=== PATIENT | male | born 1940 | race Caucasian/White ===

== ENCOUNTER 2016-05-06 18:38 | Emergency (ER) | payer MEDICARE, BC ==
[~2016-05-06 18:38] MED LIST: ALBUTEROL S3 ML/VIAL NEB; ALDACTONE25 MG PO; ASPIRIN325 MG PO; CEFDINIR300 MG PO; CEFUROXIME250 MG PO; COZAAR50 MG PO; FLOMAX0.4 MG PO; FLUTICASONE PRO16 GM NS; GLUCOPHAGE1000 MG PO; HUMALOG100 UNIT/1 SQ; IPRAT-ALBUT 0.5-3 ML IH; ISOSORBIDE MONO30 MG PO; LANTUS100 UNIT/1 SQ; LASIX40 MG PO; LIPITOR80 MG PO; MAGNESIUM OXID400 MG PO; NEURONTIN400 MG PO; NEURONTIN600 MG PO; NYSTATIN1 EAC1 TOP; NYSTATIN5 ML PO; OMEPRAZOLE40 MG PO; PERFOROMIS20 MCG/2 M IH; POTASSIUM CHLO10 MEQ PO; POTASSIUM CHLO20 MEQ PO; PREDNISONE10 MG PO; PROBIOTIC1 EAC1 PO; PROSCAR5 MG PO; PULMICORT0.5 MG/2 M IH; SEROQUEL25 MG PO; TESSALON PERLE100 MG PO; TRAMADOL HCL50 MG PO; TYLENOL325 MG PO; ZANTAC150 MG PO; ZITHROMAX250 MG PO
[2016-08-16] MEDS ORDERED: ASPIR 8181 MG PO (11:50)
[2016-08-16] MEDS ORDERED: LIPITOR80 MG PO (11:51)
[2016-08-16] MEDS ORDERED: SENNA CONCENTR8.6 MG PO (11:51)
[2016-08-16] MEDS ORDERED: RISPERDAL1 MG PO (11:51)
[2016-08-16] MEDS ORDERED: DULCOLAX10 MG RC (11:52)
[2016-08-16] MEDS ORDERED: OMEPRAZOLE40 MG PO (12:01)
[2016-08-16] MEDS ORDERED: LASIX40 MG PO (12:01)
[2016-08-16] MEDS ORDERED: K-DUR20 MEQ PO (12:01)
[2016-08-16] MEDS ORDERED: COREG3.125 MG PO (12:02)
[2016-08-16] MEDS ORDERED: MAGNESIUM OXID400 MG PO (12:02)
[2016-08-16] MEDS ORDERED: FLOMAX0.4 MG PO (12:03)
[2016-08-16] MEDS ORDERED: PROSCAR5 MG PO (12:04)
[2016-08-16] MEDS ORDERED: ARICEPT10 MG PO (12:05)
[2016-08-16] MEDS ORDERED: REGLAN5 MG PO (12:05)
[2016-08-16] MEDS ORDERED: TYLENOL EXTRA500 MG PO (12:06)
[2016-08-16] MEDS ORDERED: COLACE100 MG PO (12:06)
[2016-08-16] MEDS ORDERED: BROVANA15 MCG/2 M NEB (12:07)
[2016-08-16] MEDS ORDERED: IPRAT-ALBUT 0.5-3 ML NEB (12:07)
[2016-08-16] MEDS ORDERED: PULMICORT0.5 MG/2 M NEB (12:07)
[2016-08-16] MEDS ORDERED: ZYVOX600 MG PO (12:08)
[2016-08-16] MEDS ORDERED: LEVEMIR100 UNIT/1 SQ (12:08)
== END 2016-05-06 19:36 | disposition home or self-care (01) ==
LOC: ER 18:38
DX: K80.20 Calculus of gallbladder without cholecystitis without obstruction (principal); E10.9 Type 1 diabetes mellitus without complications; I11.0 Hypertensive heart disease with heart failure; I50.9 Heart failure, unspecified; Z87.891 Personal history of nicotine dependence; Z96.643 Presence of artificial hip joint, bilateral; Z86.73 Personal history of transient ischemic attack (TIA), and cerebral infarction without residual deficits; Z79.82 Long term (current) use of aspirin; Z79.899 Other long term (current) drug therapy
CPT/HCPCS: 36415; 96361; 96374

== ENCOUNTER 2016-06-23 18:15 | Observation (INO) | payer MEDICARE, BC ==
[~2016-06-23] VITALS: Ht 182.9 cm; Wt 131.1 kg
--- NOTE | 2016-06-24 13:07 | NUR ---
PATIENT REFUSING TO WEAR O2, REFUSING BREATHING TREATMENTS. REPORTED TO MD CID AT THIS TIME. HE REPORTED TO CONTACT THE FAMILY AND HAVE SOMEONE TO COME SIT WITH THE PATIENT AT THIS TIME. MARTHA JOSHI SON REPORTED THAT NO FAMILY COULD COME SIT WITH PATIENT AT THIS TIME. DIGNA STEPHEN DID NOT ANSWER HIS PHONE AND UNABLE TO LEAVE VOICEMAIL AT THIS TIME. MD CID MADE AWARE AT THIS TIME AND VERBALIZED "CAN'T HELP YOU THEN DO WHATEVER THE PATIENT WILL LET YOU DO".
--- NOTE | 2016-06-24 14:27 | NUR ---
1000 B NAHID RN ATTEMPTED 3 STICKS FOR IV ALL UNSUCCESSFUL 1110 VANDANA RN FROM ICU ATTEMPTED 1 STICK AT IV ATTEMPT AND WAS UNSUCCESSFUL 1115 2 UNSUCCESSFUL IV ATTEMPTS BY MITCHEL GOLDSTEIN FROM ICU [address] CID AND RECEIVED ORDER FOR PICC LINE PLACEMENT
--- NOTE | 2016-06-24 16:01 | NUR ---
1320 PATIENT AGREEABLE TO WEAR O2 AT THIS TIME. 1400 BENNY MARIN HERE AT THIS TIME TO SIT WITH PATIENT. PATIENT RESTING IN BED WITH EYES CLOSED AT THIS TIME
--- NOTE | 2016-06-24 18:14 | NUR ---
172 MOY CALLED AND REPORTED PICC OK TO USE
[2016-08-16] MEDS ORDERED: ASPIR 8181 MG PO (11:50)
[2016-08-16] MEDS ORDERED: LIPITOR80 MG PO (11:51)
[2016-08-16] MEDS ORDERED: SENNA CONCENTR8.6 MG PO (11:51)
[2016-08-16] MEDS ORDERED: RISPERDAL1 MG PO (11:51)
[2016-08-16] MEDS ORDERED: DULCOLAX10 MG RC (11:52)
[2016-08-16] MEDS ORDERED: K-DUR20 MEQ PO (12:01)
[2016-08-16] MEDS ORDERED: OMEPRAZOLE40 MG PO (12:01)
[2016-08-16] MEDS ORDERED: LASIX40 MG PO (12:01)
[2016-08-16] MEDS ORDERED: MAGNESIUM OXID400 MG PO (12:02)
[2016-08-16] MEDS ORDERED: COREG3.125 MG PO (12:02)
[2016-08-16] MEDS ORDERED: FLOMAX0.4 MG PO (12:03)
[2016-08-16] MEDS ORDERED: PROSCAR5 MG PO (12:04)
[2016-08-16] MEDS ORDERED: REGLAN5 MG PO (12:05)
[2016-08-16] MEDS ORDERED: ARICEPT10 MG PO (12:05)
[2016-08-16] MEDS ORDERED: TYLENOL EXTRA500 MG PO (12:06)
[2016-08-16] MEDS ORDERED: COLACE100 MG PO (12:06)
[2016-08-16] MEDS ORDERED: PULMICORT0.5 MG/2 M NEB (12:07)
[2016-08-16] MEDS ORDERED: BROVANA15 MCG/2 M NEB (12:07)
[2016-08-16] MEDS ORDERED: IPRAT-ALBUT 0.5-3 ML NEB (12:07)
[2016-08-16] MEDS ORDERED: LEVEMIR100 UNIT/1 SQ (12:08)
[2016-08-16] MEDS ORDERED: ZYVOX600 MG PO (12:08)
== END 2016-06-25 18:10 | disposition home or self-care (01) ==
LOC: ER 18:15 → MED 21:47
PROVIDERS: ADMIT Internal Medicine
DX: G93.40 Encephalopathy, unspecified (principal); N39.0 Urinary tract infection, site not specified; I10 Essential (primary) hypertension; E78.5 Hyperlipidemia, unspecified; E11.9 Type 2 diabetes mellitus without complications; N40.0 Benign prostatic hyperplasia without lower urinary tract symptoms; J44.9 Chronic obstructive pulmonary disease, unspecified; I25.10 Atherosclerotic heart disease of native coronary artery without angina pectoris; I73.9 Peripheral vascular disease, unspecified; G47.30 Sleep apnea, unspecified; Z86.59 Personal history of other mental and behavioral disorders; Z79.899 Other long term (current) drug therapy; Z86.73 Personal history of transient ischemic attack (TIA), and cerebral infarction without residual deficits; Z98.61 Coronary angioplasty status; Z96.641 Presence of right artificial hip joint; Z98.49 Cataract extraction status, unspecified eye; Z87.891 Personal history of nicotine dependence; Z86.79 Personal history of other diseases of the circulatory system
CPT/HCPCS: 36415; 96360; 96361; 96372; 96375; 96376; 97162-GP; 97166; C1751; G0378; J0456; J0696; J1650

== ENCOUNTER 2016-06-23 18:15 | Emergency (ER) | payer MEDICARE, BC ==
[2016-08-16] MEDS ORDERED: ASPIR 8181 MG PO (11:50)
[2016-08-16] MEDS ORDERED: SENNA CONCENTR8.6 MG PO (11:51)
[2016-08-16] MEDS ORDERED: LIPITOR80 MG PO (11:51)
[2016-08-16] MEDS ORDERED: RISPERDAL1 MG PO (11:51)
[2016-08-16] MEDS ORDERED: DULCOLAX10 MG RC (11:52)
[2016-08-16] MEDS ORDERED: LASIX40 MG PO (12:01)
[2016-08-16] MEDS ORDERED: K-DUR20 MEQ PO (12:01)
[2016-08-16] MEDS ORDERED: OMEPRAZOLE40 MG PO (12:01)
[2016-08-16] MEDS ORDERED: COREG3.125 MG PO (12:02)
[2016-08-16] MEDS ORDERED: MAGNESIUM OXID400 MG PO (12:02)
[2016-08-16] MEDS ORDERED: FLOMAX0.4 MG PO (12:03)
[2016-08-16] MEDS ORDERED: PROSCAR5 MG PO (12:04)
[2016-08-16] MEDS ORDERED: ARICEPT10 MG PO (12:05)
[2016-08-16] MEDS ORDERED: REGLAN5 MG PO (12:05)
[2016-08-16] MEDS ORDERED: TYLENOL EXTRA500 MG PO (12:06)
[2016-08-16] MEDS ORDERED: COLACE100 MG PO (12:06)
[2016-08-16] MEDS ORDERED: IPRAT-ALBUT 0.5-3 ML NEB (12:07)
[2016-08-16] MEDS ORDERED: BROVANA15 MCG/2 M NEB (12:07)
[2016-08-16] MEDS ORDERED: PULMICORT0.5 MG/2 M NEB (12:07)
[2016-08-16] MEDS ORDERED: LEVEMIR100 UNIT/1 SQ (12:08)
[2016-08-16] MEDS ORDERED: ZYVOX600 MG PO (12:08)
== END 2016-06-23 21:46 | disposition admitted as inpatient to this hospital (09) ==
LOC: ER 18:15
DX: R41.82 Altered mental status, unspecified (principal); J18.9 Pneumonia, unspecified organism; K21.9 Gastro-esophageal reflux disease without esophagitis; E11.9 Type 2 diabetes mellitus without complications; I11.0 Hypertensive heart disease with heart failure; I50.9 Heart failure, unspecified; E78.00 Pure hypercholesterolemia, unspecified; J44.9 Chronic obstructive pulmonary disease, unspecified; E66.9 Obesity, unspecified; Z96.643 Presence of artificial hip joint, bilateral; Z79.82 Long term (current) use of aspirin; Z90.49 Acquired absence of other specified parts of digestive tract; Z79.899 Other long term (current) drug therapy; Z79.4 Long term (current) use of insulin; Z86.73 Personal history of transient ischemic attack (TIA), and cerebral infarction without residual deficits
CPT/HCPCS: 96360; 96361

== ENCOUNTER 2016-07-13 12:32 | Emergency (ER) | payer MEDICARE, BC ==
[2016-08-16] MEDS ORDERED: ASPIR 8181 MG PO (11:50)
[2016-08-16] MEDS ORDERED: LIPITOR80 MG PO (11:51)
[2016-08-16] MEDS ORDERED: SENNA CONCENTR8.6 MG PO (11:51)
[2016-08-16] MEDS ORDERED: RISPERDAL1 MG PO (11:51)
[2016-08-16] MEDS ORDERED: DULCOLAX10 MG RC (11:52)
[2016-08-16] MEDS ORDERED: K-DUR20 MEQ PO (12:01)
[2016-08-16] MEDS ORDERED: OMEPRAZOLE40 MG PO (12:01)
[2016-08-16] MEDS ORDERED: LASIX40 MG PO (12:01)
[2016-08-16] MEDS ORDERED: COREG3.125 MG PO (12:02)
[2016-08-16] MEDS ORDERED: MAGNESIUM OXID400 MG PO (12:02)
[2016-08-16] MEDS ORDERED: FLOMAX0.4 MG PO (12:03)
[2016-08-16] MEDS ORDERED: PROSCAR5 MG PO (12:04)
[2016-08-16] MEDS ORDERED: REGLAN5 MG PO (12:05)
[2016-08-16] MEDS ORDERED: ARICEPT10 MG PO (12:05)
[2016-08-16] MEDS ORDERED: TYLENOL EXTRA500 MG PO (12:06)
[2016-08-16] MEDS ORDERED: COLACE100 MG PO (12:06)
[2016-08-16] MEDS ORDERED: PULMICORT0.5 MG/2 M NEB (12:07)
[2016-08-16] MEDS ORDERED: IPRAT-ALBUT 0.5-3 ML NEB (12:07)
[2016-08-16] MEDS ORDERED: BROVANA15 MCG/2 M NEB (12:07)
[2016-08-16] MEDS ORDERED: ZYVOX600 MG PO (12:08)
[2016-08-16] MEDS ORDERED: LEVEMIR100 UNIT/1 SQ (12:08)
== END 2016-07-13 17:29 | disposition critical access hospital (66) ==
LOC: ER 12:32
DX: J18.9 Pneumonia, unspecified organism (principal); E10.9 Type 1 diabetes mellitus without complications; I11.0 Hypertensive heart disease with heart failure; I50.9 Heart failure, unspecified; E78.5 Hyperlipidemia, unspecified; I25.10 Atherosclerotic heart disease of native coronary artery without angina pectoris; I25.2 Old myocardial infarction; J44.9 Chronic obstructive pulmonary disease, unspecified; Z90.49 Acquired absence of other specified parts of digestive tract; Z87.891 Personal history of nicotine dependence; Z99.81 Dependence on supplemental oxygen; Z86.73 Personal history of transient ischemic attack (TIA), and cerebral infarction without residual deficits; Z96.643 Presence of artificial hip joint, bilateral; Z79.82 Long term (current) use of aspirin; Z79.899 Other long term (current) drug therapy
CPT/HCPCS: 36415; 51702; 96365; 96366; 96367; J3370

== ENCOUNTER 2016-07-13 12:32 | Inpatient (IN) | payer MEDICARE, BC ==
[~2016-07-13] VITALS: Ht 182.9 cm; Wt 129.3 kg
--- NOTE | 2016-07-17 07:46 | NUR ---
AT APPROXIMATELY 06:57 ANGELI AND BONNIE ADVISED ME OF PATIENTS FACE BEING MORE RED THAN USUAL AND HAVING A RASH. I HAVE WRITTEN FOR THE PHYSICIAN TO TAKE A LOOK AT HIS FACE ON THE PHYSICIAN COMMUNICATION SHEET.
[2016-08-16] MEDS ORDERED: ASPIR 8181 MG PO (11:50)
[2016-08-16] MEDS ORDERED: LIPITOR80 MG PO (11:51)
[2016-08-16] MEDS ORDERED: SENNA CONCENTR8.6 MG PO (11:51)
[2016-08-16] MEDS ORDERED: RISPERDAL1 MG PO (11:51)
[2016-08-16] MEDS ORDERED: DULCOLAX10 MG RC (11:52)
[2016-08-16] MEDS ORDERED: OMEPRAZOLE40 MG PO (12:01)
[2016-08-16] MEDS ORDERED: LASIX40 MG PO (12:01)
[2016-08-16] MEDS ORDERED: K-DUR20 MEQ PO (12:01)
[2016-08-16] MEDS ORDERED: MAGNESIUM OXID400 MG PO (12:02)
[2016-08-16] MEDS ORDERED: COREG3.125 MG PO (12:02)
[2016-08-16] MEDS ORDERED: FLOMAX0.4 MG PO (12:03)
[2016-08-16] MEDS ORDERED: PROSCAR5 MG PO (12:04)
[2016-08-16] MEDS ORDERED: ARICEPT10 MG PO (12:05)
[2016-08-16] MEDS ORDERED: REGLAN5 MG PO (12:05)
[2016-08-16] MEDS ORDERED: COLACE100 MG PO (12:06)
[2016-08-16] MEDS ORDERED: TYLENOL EXTRA500 MG PO (12:06)
[2016-08-16] MEDS ORDERED: PULMICORT0.5 MG/2 M NEB (12:07)
[2016-08-16] MEDS ORDERED: IPRAT-ALBUT 0.5-3 ML NEB (12:07)
[2016-08-16] MEDS ORDERED: BROVANA15 MCG/2 M NEB (12:07)
[2016-08-16] MEDS ORDERED: LEVEMIR100 UNIT/1 SQ (12:08)
[2016-08-16] MEDS ORDERED: ZYVOX600 MG PO (12:08)
== END 2016-07-19 13:05 | DRG 193 ==
LOC: ER 12:32 → MED 16:11
PROVIDERS: ADMIT Internal Medicine
DX: J18.9 Pneumonia, unspecified organism (principal); G93.40 Encephalopathy, unspecified; E87.0 Hyperosmolality and hypernatremia; Z68.41 Body mass index [BMI] 40.0-44.9, adult; I69.354 Hemiplegia and hemiparesis following cerebral infarction affecting left non-dominant side; I50.30 Unspecified diastolic (congestive) heart failure; Y95 Nosocomial condition; F03.90 Unspecified dementia, unspecified severity, without behavioral disturbance, psychotic disturbance, mood disturbance, and anxiety; E66.01 Morbid (severe) obesity due to excess calories; L21.9 Seborrheic dermatitis, unspecified; Z66 Do not resuscitate; J44.9 Chronic obstructive pulmonary disease, unspecified; Z99.81 Dependence on supplemental oxygen; E11.9 Type 2 diabetes mellitus without complications; I25.10 Atherosclerotic heart disease of native coronary artery without angina pectoris; Z98.61 Coronary angioplasty status; I73.9 Peripheral vascular disease, unspecified; E78.5 Hyperlipidemia, unspecified; G47.30 Sleep apnea, unspecified; Z87.440 Personal history of urinary (tract) infections; Z96.641 Presence of right artificial hip joint; Z87.891 Personal history of nicotine dependence; I11.0 Hypertensive heart disease with heart failure; Z79.82 Long term (current) use of aspirin; Z79.4 Long term (current) use of insulin; Z79.899 Other long term (current) drug therapy
CPT/HCPCS: 36415; 87507; 92610; 97162-GP; 97166; J1650; J2060; J3370; J7040; J7050